=== PATIENT | male | born 1940 | race Caucasian/White ===

== ENCOUNTER 2016-08-21 10:25 | Outpatient (CLI) | payer OTHER, MEDICARE | END 2016-08-21 23:00 | LOC: LAB SRH 10:25 | DX: R63.4 Abnormal weight loss (principal) | CPT/HCPCS: 90004; 90074; 90100; 91046; 95059; 95150 ==

== ENCOUNTER 2016-08-30 10:23 | Outpatient (CLI) | payer OTHER, MEDICARE ==
--- NOTE | 2016-08-30 12:35 | DIAGNOSTIC IMAGING REPORT ---
PROCEDURE: MR UPPER EXTREMITY W/O CONT-RT INDICATION: SPRAIN OF RT ROTATOR CUFF TECHNIQUE: PD and FAT-SAT PD, axial, and coronal-oblique images. PD and STIR sagittal-oblique images. COMPARISON: None. FINDINGS: Moderate AC joint degenerative changes with inferior spurring with caudal angulation of the acromion resulting in impingement. There is thickening and diffuse increased T2 signal of the distal rotator cuff consistent with tendinosis. There is also fraying of the distal supraspinatus tendon with partial thickness tears. Abnormal signal of the supraspinatus musculotendinous junction suggestive of a partial tear. Rotator interval edema consistent with a tear. Small subacromial and subdeltoid bursal effusion. Marked attenuation of the bicipital tendon in the bicipital notch consistent with a tear of the long head . Normal glenoid labrum. Mild coracoid impingement. Normal glenohumeral ligaments. No suspicious osseous lesions. IMPRESSION: 1. Moderate AC joint degenerative changes and caudal angulation of the carbon resulting in impingement 2. Rotator cuff tendinosis with fraying of the supraspinatus tendon insertion and partial thickness tears 3. Supraspinatus musculotendinous junction partial tear 4. Rotator interval tear 5. Torn long head of the bicipital tendon 6. Mild coracoid impingement 7. Subacromial and subdeltoid bursitis
== END 2016-08-30 23:00 ==
LOC: MRI SRH 10:23
DX: S46.811A Strain of other muscles, fascia and tendons at shoulder and upper arm level, right arm, initial encounter (principal); S46.111A Strain of muscle, fascia and tendon of long head of biceps, right arm, initial encounter; M75.41 Impingement syndrome of right shoulder; M75.51 Bursitis of right shoulder